=== PATIENT | male | born 1990 | race Caucasian/White ===

== ENCOUNTER 2022-04-13 11:04 | Emergency (ER) | payer OTHER, SELFPAY ==
[2022-04-13 11:06] VITALS: BP 138/73; PULSE 67; RESP 14; TEMP 36.9; O2SAT 99; BMI 35.2
--- NOTE | 2022-04-13 11:39 | ED.GENADULT ---
HPI - General Adult General Chief complaint: Abdominal Pain Stated complaint: appendicitis Time Seen by Provider: 04/13/22 11:38 Source: patient Mode of arrival: Ambulatory History of Present Illness HPI narrative: 31-year-old otherwise healthy active duty [facility] [place] male who is here for evaluation of right lower quadrant abdominal pain. He states symptoms started just over 24 hours ago. Has had some nausea but no vomiting. No fevers. No urinary symptoms. Some diarrhea but no constipation. No testicular pain. No skin changes. Has not tried anything for the symptoms prior to arrival. Went as medical department who recommended he come to emergency department for further evaluation. Related Data Previous Rx's Medication Instructions Recorded hydrocodone 5 mg-acetaminophen 325 1 tab PO Q4-6H PRN pain #10 tabs 04/13/22 mg tablet ondansetron 4 mg disintegrating 4 mg PO Q6H PRN nausea and 04/13/22 tablet vomiting #14 tabs Allergies Allergy/AdvReac Type Severity Reaction Status Date / Time No Known Drug Allergies Allergy Verified 04/13/22 11:11 Review of Systems Constitutional Constitutional: Reports system reviewed and no additional complaints, except as documented Gastrointestinal Gastrointestinal: Reports system reviewed and no additional complaints, except as documented Genitourinary Genitourinary: Reports system reviewed and no additional complaints, except as documented Integumentary/Breasts Skin/Breast: Reports system reviewed and no additional complaints, except as documented Patient History Medical History Healthy adult Social History Smoking Status: Current every day smoker Smoking Status: Current every day smoker tobacco type: vaping alcohol intake frequency: holidays/special occasions only Substance Use Type: does not use Exam Initial Vital Signs Initial Vital Signs: Vital Signs Temperature 98.5 F 04/13/22 11:06 Pulse Rate 67 04/13/22 11:06 Respiratory Rate 14 04/13/22 11:06 Blood Pressure 138/73 04/13/22 11:06 Pulse Oximetry 99 04/13/22 11:06 Oxygen Delivery Method 04/13/22 11:06 Const General: cooperative, comfortable and No ill appearing HENMT Head: normal to inspection and normocephalic Resp Effort & Inspection: normal respiratory effort Auscultation: clear to auscultation bilaterally Cardio Rate: regular rate Rhythm: regular rhythm GI Inspection: normal to inspection Palpation: soft, No firm and tender (Right lower quadrant) Back/Spine/Pelvis Back: No CVA tenderness Skin General: no rashes or lesions noted Neuro General: patient alert, patient awake and moves all extremities Extrem General: normal to inspection and capillary refill normal Course Orders Ordered: ED Orders 04/13/22 11:30 Complete Blood Count AUTO DIFF Stat Comprehensive Metabolic Panel Stat Lipase Stat 04/13/22 11:39 CT abdomen pelvis w con Stat Vital Signs Vital signs: Vital Signs - 8 hr 04/13/22 11:06 Temperature 98.5 F Pulse Rate 67 Respiratory Rate 14 Blood Pressure 138/73 Pulse Oximetry 99 Oxygen Delivery Method Room Air Medical Decision Making Lab Data Lab results reviewed: Yes I reviewed the patient's lab results. Result diagrams: 04/13/22 11:30 04/13/22 11:30 Labs: Lab Results 04/13/22 04/13/22 Range/Units 11:30 11:30 WBC 9.2 (4.5-11.0) X10^3/uL RBC 4.81 (4.5-5.9) X10^6/uL Hgb 14.5 (13.5-17.5) g/dL Hct 43.2 (41-53) % MCV 89.7 (80-100) fL MCH 30.1 (26-34) PG MCHC 33.5 (30-36) % RDW 12.3 (11.6-14.8) % Plt Count 91 L (150-400) X10^3/uL Neut % (Auto) 54.9 (50-75) % Lymph % (Auto) 30.2 (25-40) % [place] % (Auto) 12.2 (3-14) % Eos % (Auto) 2.1 (2-4) % Baso % (Auto) 0.6 (0-2) % Neut # (Auto) 5100 (7345-1264) /uL Lymph # (Auto) 2800 (5063-0872) /uL [place] # (Auto) 1100 H (0-900) /uL Eos # (Auto) 200 (0-450) /uL Baso # (Auto) 100 (0-100) /uL Sodium 144 (137-145) mmol/L Potassium 4.3 (3.4-5.1) mmol/L Chloride 107 (98-107) mmol/L Carbon Dioxide 27 (22-32) mmol/L BUN 15 (9-20) mg/dL Creatinine 0.87 (0.66-1.25) mg/dL Estimated GFR > 60 (>60) mL/min BUN/Creatinine Ratio 17.2 (6-22) Glucose 83 (70-100) mg/dL Calcium 9.3 (8.4-10.2) mg/dL Total Bilirubin 0.3 (0.2-1.3) mg/dL AST 26 (17-59) IU/L ALT 48 (<50) IU/L Alkaline Phosphatase 50 (38-126) U/L Total Protein 7.5 (6.3-8.2) g/dL Albumin 4.3 (3.5-5.0) g/dL Globulin 3.2 (1.7-4.1) g/dL Albumin/Globulin Ratio 1.3 (1.0-2.8) Lipase 53 (23-300) U/L Imaging Data CT scan - abdomen/pelvis: Radiologist's Impression: [place] [address] CT Scan Report Signed Patient: Neto Geiger MR#: [id number] : 1990 Acct:[id number] Age/Sex: 31 / M Date of Service: 04/13/22 Loc: Accession Number: [id number] ?? Procedure: CT abdomen pelvis w con Ordering Provider: Boone Topete D.O. PROCEDURE:? CT ABDOMEN PELVIS W CON ? INDICATIONS:? RLQ pain eval for appy ? TECHNIQUE:? After the administration of intravenous contrast, axial sections acquired from the lung bases to the pubic symphysis.? Coronal and sagittal reformats were performed.? For radiation dose reduction, the following was used:? automated exposure control, adjustment of mA and/or kV according to patient size.? ? COMPARISON:? None. ? FINDINGS:? Image quality:? Excellent.? ? Lung bases:? Unremarkable. Heart:? No significant findings. ? ABDOMEN: Liver:? Unremarkable.? ? Gallbladder:? Unremarkable.? ? Biliary ducts:? Unremarkable.? ? Pancreas:? Unremarkable.? ? Spleen:? Unremarkable.? ? Adrenal Glands:? Unremarkable.? ? Kidneys and Ureters:? No hydronephrosis.? 2 mm calculus within the proximal right ureter. ? Stomach and Bowel:? Stomach, small bowel loops, and colon are unremarkable.? Normal appendix. Peritoneum:? No abnormal intraperitoneal fluid.? No free air.? ? Ventral Wall: ? No hernias.? Abdominal Nodes:? No retroperitoneal or mesenteric adenopathy by size criteria.? Vessels:? Aorta and inferior vena cava are normal in size.? ? PELVIS: Pelvic Organs:? Unremarkable.? ? Bladder:? Unremarkable.? ? Pelvic Nodes: No enlarged lymph nodes.? Miscellaneous: No hernias are seen. ? ? ? Bones:? Unremarkable.? IMPRESSION:? 1. Nonobstructing right proximal ureteral calculus. 2. Normal appendix.? ? ? Dictated by: Surjit Norton M.D. on 04/13/2022 at 12:05 ? ? Approved by: Surjit Norton M.D. on 04/13/2022 at 12:07? MDM Narrative Medical decision making narrative: CT scan shows proximal right-sided ureteral stone. Kidney function is unremarkable. I did discuss this with the patient. Will discharge home with symptom control. He was given return precautions. He expressed understanding and agreement Discharge Plan Departure Patient Disposition: Home Clinical Impression: Renal colic Instructions: DI for Kidney Stones Activity Restrictions/Additional Instructions: I do recommend that you follow-up with your medical department. Return to the emergency department for any new symptoms to include fevers, inability to urinate, inability to tolerate oral intake or any other worsening symptoms. Prescriptions: New ondansetron 4 mg tablet,disintegrating 4 mg PO Q6H PRN (Reason: nausea and vomiting) Qty: 14 0RF hydrocodone-acetaminophen 5-325 mg tablet 1 tab PO Q4-6H PRN (Reason: pain) Qty: 10 0RF
[2022-04-13 11:45] LABS: Add Manual Diff / Slide Review NO; Basophils Absolute Auto 100 /uL (0-100); Basophils Percent Auto 0.6 % (0-2); Eosinophils Absolute Auto 200 /uL (0-450); Eosinophils Percent Auto 2.1 % (2-4); Hematocrit 43.2 % (41-53); Hemoglobin 14.5 g/dL (13.5-17.5); Lymphocytes Absolute Auto 2800 /uL (1100-4500); Lymphocytes Percent Auto 30.2 % (25-40); Mean Corpuscular HGB Conc 33.5 % (30-36); Mean Corpuscular Hemoglobin 30.1 PG (26-34); Mean Corpuscular Volume 89.7 fL (80-100); Monocytes Absolute Auto 1100 /uL (0-900); Monocytes Percent Auto 12.2 % (3-14); Neutrophils Absolute Auto 5100 /uL (1500-7000); Neutrophils Percent Auto 54.9 % (50-75); Platelet Count 91 X10^3/uL (150-400); Red Blood Cell Count 4.81 X10^6/uL (4.5-5.9); Red Cell Distribution Width 12.3 % (11.6-14.8); White Blood Cell Count 9.2 X10^3/uL (4.5-11.0)
[2022-04-13 11:58] LABS: Alanine Aminotransferase 48 IU/L (<50); Albumin 4.3 g/dL (3.5-5.0); Albumin Globulin Ratio 1.3 (1.0-2.8); Alkaline Phosphatase 50 U/L (38-126); Aspartate Aminotransferase 26 IU/L (17-59); BUN Creatinine Ratio 17.2 (6-22); Bilirubin Total 0.3 mg/dL (0.2-1.3); Blood Urea Nitrogen 15 mg/dL (9-20); Calcium 9.3 mg/dL (8.4-10.2); Carbon Dioxide 27 mmol/L (22-32); Chloride 107 mmol/L (98-107); Estimated Glomerular Filt Rate > 60 mL/min (>60); Globulin 3.2 g/dL (1.7-4.1); Glucose 83 mg/dL (70-100); HEMOLYSIS < 15 (0-50); Lipase 53 U/L (23-300); Potassium 4.3 mmol/L (3.4-5.1); Sodium 144 mmol/L (137-145); Total Protein 7.5 g/dL (6.3-8.2)
--- NOTE | 2022-04-13 12:02 | DI.CT.S_ITS ---
PROCEDURE: CT ABDOMEN PELVIS W CON INDICATIONS: RLQ pain eval for appy TECHNIQUE: After the administration of intravenous contrast, axial sections acquired from the lung bases to the pubic symphysis. Coronal and sagittal reformats were performed. For radiation dose reduction, the following was used: automated exposure control, adjustment of mA and/or kV according to patient size. COMPARISON: None. FINDINGS: Image quality: Excellent. Lung bases: Unremarkable. Heart: No significant findings. ABDOMEN: Liver: Unremarkable. Gallbladder: Unremarkable. Biliary ducts: Unremarkable. Pancreas: Unremarkable. Spleen: Unremarkable. Adrenal Glands: Unremarkable. Kidneys and Ureters: No hydronephrosis. 2 mm calculus within the proximal right ureter. Stomach and Bowel: Stomach, small bowel loops, and colon are unremarkable. Normal appendix. Peritoneum: No abnormal intraperitoneal fluid. No free air. Ventral Wall: No hernias. Abdominal Nodes: No retroperitoneal or mesenteric adenopathy by size criteria. Vessels: Aorta and inferior vena cava are normal in size. PELVIS: Pelvic Organs: Unremarkable. Bladder: Unremarkable. Pelvic Nodes: No enlarged lymph nodes. Miscellaneous: No hernias are seen. Bones: Unremarkable. IMPRESSION: 1. Nonobstructing right proximal ureteral calculus. 2. Normal appendix. Dictated by: Surjit Norton M.D. on 04/13/2022 at 12:05 Approved by: Surjit Norton M.D. on 04/13/2022 at 12:07
== END 2022-04-13 12:33 | disposition home or self-care (01) ==
PROVIDERS: Emergency Provider Emergency Medicine
DX: N23 Unspecified renal colic (principal); R11.0 Nausea
CPT/HCPCS: 36415; 74177; 80053; 83690; 85025; 99284

== ENCOUNTER → 2023-04-11 14:29 | Outpatient (CLI) | payer OTHER, SELFPAY | PROVIDERS: Referring Provider Chiropractor; Visit Provider Chiropractor | DX: R06.02 Shortness of breath (principal); R07.9 Chest pain, unspecified; F17.290 Nicotine dependence, other tobacco product, uncomplicated | CPT/HCPCS: 94060 ==

== ENCOUNTER → 2023-05-02 12:18 | Outpatient (CLI) | payer OTHER, SELFPAY ==
--- NOTE | 2023-05-02 | DI.RAD.S_ITS ---
PROCEDURE: XR CHEST 2V INDICATIONS: DIFFICULTY BREATHIN TECHNIQUE: 2 views of the chest were acquired. COMPARISON: None. FINDINGS: Surgical changes and devices: None. Lungs and pleura: Lungs are clear. No pleural effusions or pneumothorax. Mediastinum: Mediastinal contours are normal. Heart size is normal. Bones and chest wall: No suspicious bony abnormalities. Soft tissues appear unremarkable. IMPRESSION: No acute cardiopulmonary abnormality is seen. Dictated by: Sandhya Myrick M.D. on 05/02/2023 at 13:52 Approved by: Sandhya Myrick M.D. on 05/02/2023 at 13:52
== END ==
PROVIDERS: Referring Provider Chiropractor; Visit Provider Chiropractor
DX: R07.9 Chest pain, unspecified (principal); R06.02 Shortness of breath
CPT/HCPCS: 71046